=== PATIENT | female | born 1975 | race Caucasian/White ===

== ENCOUNTER → 2016-08-21 | Outpatient (CLI) | payer BC ==
--- NOTE | 2016-08-21 15:03 | XR ---
EXAMINATION TYPE: XR chest 2V DATE OF EXAM: 08/21/2016 2:59 PM COMPARISON: None HISTORY: 41 year-old female shortness of breath TECHNIQUE: Frontal and lateral views FINDINGS: The cardiomediastinal silhouette, aorta, and pulmonary vasculature are within normal limits. Lungs an d pleural spaces are clear. IMPRESSION: No acute cardiopulmonary process.
== END | disposition home or self-care (01) ==
LOC: RADXRMAIN 14:46
PROVIDERS: ATTEND Family Medicine
DX: R06.02 Shortness of breath (principal)
CPT/HCPCS: 71020

== ENCOUNTER → 2016-10-10 | Outpatient (CLI) | payer BC ==
--- NOTE | 2016-10-10 13:08 | MM ---
Reason for exam: follow-up at short interval from prior study. Last mammogram was performed 6 months ago. History: Family history of breast cancer in maternal aunt. Benign US breast aspiration ea add LT of the left breast, September 09, 2015. Benign US breast aspiration single LT of the left breast, September 09, 2015. Took hormonal contraceptives for 9 years beginning at age 16. Physical Findings: Nurse did not find any significant physical abnormalities on exam. MG 3D Diag Mammo W/Cad LILIA Bilateral CC and MLO view(s) were taken. Prior study comparison: April 02, 2016, bilateral MG 3d diag mammo w/cad LILIA. September 05, 2015, left breast MG 3d diag mammo w/cad LT. The breast tissue is heterogeneously dense. This may lower the sensitivity of mammography. No suspicious calcifications are seen. There is chronic nodularity bilaterally. These results were verbally communicated with the patient and result sheet given to the patient on 10/10/16. ASSESSMENT: Incomplete: need additional imaging evaluation, BI-RAD 0 RECOMMENDATION: Ultrasound of the left breast. Manage patient on a clinical basis.
--- NOTE | 2016-10-10 13:18 | USB ---
Reason for exam: additional evaluation requested from abnormal screening. History: Family history of breast cancer in maternal aunt. Benign US breast aspiration ea add LT of the left breast, September 09, 2015. Benign US breast aspiration single LT of the left breast, September 09, 2015. Took hormonal contraceptives for 9 years beginning at age 16. US Breast LT Left breast ultrasound includes all four quadrants, the retroareolar region and axilla. Finding demonstrates a 1.1 x 1.2 x 0.4cm oval, cystic lesion with septation at 12 o'clock, a 0.9 x 0.7 x 0.4cm cystic lesion at 1 o'clock, a 1.1 x 0.4 x 0.6cm cystic lesion at 1 o'clock, a 0.7 x 0.6 x 0.3cm oval, hypoechoic lesion at 2 o'clock for which an aspiration/biopsy is recommended, a 1.1 x 0.5 x 0.5cm hypoechoic lesion at 2 o'clock for which an aspiration/biopsy is recommended, a 7.0 x 0.6 x 0.5cm oval, cystic lesion at 2 o'clock, a 1.2 x 1.2 x 0.3cm cystic cluster at 4 o'clock, a 0.7 x 0.5 x 0.3cm oval, cystic lesion at 8 o'clock and a 0.8 x 0.5 x 0.4cm oval, cystic lesion at 10 o'clock. These results were verbally communicated with the patient and result sheet given to the patient on 10/10/16. ASSESSMENT: Suspicious, BI-RAD 4 RECOMMENDATION: Aspiration and ultrasound core biopsy of the left breast. Called with mammographic findings and has scheduled an appointment for the patient for 11/01/16 at 10:[address] Tabor. Aspiration/biopsy scheduled for 10/19/16 at 11:30. PRELIMINARY REPORT CALLED AND FAXED TO DR. TABOR ON AT 300/TP.
== END | disposition home or self-care (01) ==
LOC: RADMAMWWP 09:33
PROVIDERS: ATTEND Surgery
DX: R92.8 Other abnormal and inconclusive findings on diagnostic imaging of breast (principal)
CPT/HCPCS: 76641; G0204; G0279

== ENCOUNTER → 2016-10-19 | Day surgery (SDC) | payer BC ==
[~2016-10-19] MED LIST: BACITRACIN OINT 1 EACH PACKET TOPICAL ONE; LIDOCAINE 1% INJ 10MG/ML (20 ML MDV) ONE; SODIUM BICARB 4% 5 ML VIAL (0.48 MEQ/ML) ONE
--- NOTE | 2016-10-19 13:28 | USB ---
EXAMINATION TYPE: US biopsy breast VAD LT, MG diagnostic mammo LT wo CAD DATE OF EXAM: 10/19/2016 12:54 PM CLINICAL HISTORY: 41-year-old female referred for ultrasound-guided biopsy, R92.8 Abnormal Mammo. TECHNIQUE: Ultrasound guided core biopsy of the left breast. COMPARISON: 10/10/2016 FINDINGS: Targeted scanning again showed the hypoechoic area at the 2:00 position zone A. This demonstrates posterior through transmission and a somewhat collapsed appearance. A collapsing cyst is suggested. Aspiration is not performed. 6 month follow-up recommended. The second lesion located at the 2:00 position zone B/C adjacent to a simple cyst is also again demonstrated and is targeted for biopsy. The procedure of ultrasound guided core biopsy was explained to the patient. Benefits, alternatives, and risks were discussed. An informed consent was then obtained. The patient was placed in supine positioning for imaging and for the procedure. The overlying skin was prepped and draped in usual sterile fashion. Lidocaine buffered with bicarbonate was used as anesthetic into the skin and subcutaneous tissue up to area of concern in the 2:00 left breast. Under ultrasound guidance, a 13-gauge vacuum-assisted mammotome Elite biopsy gun device was used to obtain 5 core samples. Following this, a wing clip was left in lesion. Most of the lesion was removed from the multiple specimens obtained. A small portion remains behind. The patient tolerated the procedure well without any immediate complication. The patient was kept in the radiology department for short stay after the procedure and then discharged home in stable condition. Postprocedure mammogram shows clip posteriorly at the 2:00 position. IMPRESSION: Successful, uncomplicated ultrasound guided core biopsy of area of concern in the 2:00 zone B/C left breast, full pathology results to follow. RECOMMENDATION: 1. Follow-up pathology results. 2. Six-month follow-up left breast ultrasound to reassess the suspected collapsing cyst at the 2:00 position zone A. Pathology Results: Benign BREAST, LEFT, ULTRASOUND GUIDED CORE BIOPSY: FRAGMENTS OF FIBROADENOMA. FIBROCYSTIC CHANGE (FIBROSIS, CYST FORMATION, APOCRINE METAPLASIA, ADENOSIS AND DUCT HYPERPLASIA). Recommendation Follow up ultrasound of the left breast in 6 months. BALBIR
== END ==
LOC: RADUSWWP 11:11
PROVIDERS: ATTEND Surgery
DX: D24.2 Benign neoplasm of left breast (principal); N60.12 Diffuse cystic mastopathy of left breast; N60.82 Other benign mammary dysplasias of left breast; N60.22 Fibroadenosis of left breast; N60.92 Unspecified benign mammary dysplasia of left breast; N60.02 Solitary cyst of left breast; R92.8 Other abnormal and inconclusive findings on diagnostic imaging of breast
CPT/HCPCS: 88305; 19083; G0206; A4648; J2001

== ENCOUNTER → 2018-03-18 | Outpatient (CLI) | payer MEDICAID, BC ==
--- NOTE | 2018-03-20 13:16 | MM ---
Reason for exam: screening (asymptomatic). Last mammogram was performed 1 year and 5 months ago. History: Family history of breast cancer in maternal aunt. Benign US biopsy breast VAD LT of the left breast, October 19, 2016. Benign US breast aspiration ea add LT of the left breast, September 09, 2015. Benign US breast aspiration single LT of the left breast, September 09, 2015. Took hormonal contraceptives for 9 years beginning at age 16. Physical Findings: A clinical breast exam by your physician is recommended on an annual basis and results should be correlated with mammographic findings. MG 3D Screening Mammo W/Cad Bilateral CC and MLO view(s) were taken. Prior study comparison: October 19, 2016, left breast MG diagnostic mammo LT wo CAD. October 10, 2016, bilateral MG 3d diag mammo w/cad LILIA. The breast tissue is heterogeneously dense. This may lower the sensitivity of mammography. Previous mammotome biopsy in the left breast. No significant changes when compared with prior studies. ASSESSMENT: Negative, BI-RAD 1 RECOMMENDATION: Routine screening mammogram of both breasts in 1 year.
== END | disposition home or self-care (01) ==
LOC: RADMAMWWP 15:54
PROVIDERS: ATTEND Surgery
DX: Z12.31 Encounter for screening mammogram for malignant neoplasm of breast (principal)
CPT/HCPCS: 77063; 77067

== ENCOUNTER → 2019-04-10 | Outpatient (CLI) | payer BC ==
--- NOTE | 2019-04-14 08:13 | MM ---
Reason for exam: screening (asymptomatic). Last mammogram was performed 1 year and 1 month ago. History: Family history of breast cancer in maternal aunt. Benign US biopsy breast VAD LT of the left breast, October 19, 2016. Benign US breast aspiration ea add LT of the left breast, September 09, 2015. Benign US breast aspiration single LT of the left breast, September 09, 2015. Took hormonal contraceptives for 9 years beginning at age 16. Physical Findings: A clinical breast exam by your physician is recommended on an annual basis and results should be correlated with mammographic findings. MG 3D Screening Mammo W/Cad Bilateral CC and MLO view(s) were taken. Prior study comparison: March 18, 2018, bilateral MG 3d screening mammo w/cad. October 19, 2016, left breast MG diagnostic mammo LT wo CAD. The breast tissue is heterogeneously dense. This may lower the sensitivity of mammography. Previous mammotome biopsy in the left breat. There is chronic nodularity in the left breast superiorly at a middle depth on 3D images, stable from 09/05/15. No significant changes when compared with prior studies. ASSESSMENT: Benign, BI-RAD 2 RECOMMENDATION: Routine screening mammogram of both breasts in 1 year.
== END | disposition home or self-care (01) ==
LOC: RADMAMWWP 07:03
PROVIDERS: ATTEND Surgery
DX: Z12.31 Encounter for screening mammogram for malignant neoplasm of breast (principal)
CPT/HCPCS: 77063; 77067

== ENCOUNTER → 2019-04-29 | Outpatient (CLI) | payer BC ==
[2019-04-29 10:03] VITALS: BP 113/78; PULSE 91; RESP 16; TEMP 97.8; BMI 35.3
--- NOTE | 2019-04-29 10:41 | P.HPOB ---
History of Present Illness H&P Date: 04/29/19 Chief Complaint: The patient is here for routine gynecologic exam. This is a 43-year-old with an LMP of 04/22/2019 who is status post tubal ligation. Patient is here to establish with this office. Her menses are regular every month but have gotten slightly longer and now are lasting about 7 days. She is otherwise without complaints. Her last pelvic exam was about 2 years ago. Review of Systems The patient's weight has been stable over the last year. She denies respiratory, cardiac, or G.I. problems. Past Medical History Additional Past Medical History / Comment(s): Seasonal ALLERGIES. 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 No other history of STDs. History of Any Multi-Drug Resistant Organisms: None Reported Past Surgical History: Section, Orthopedic Surgery, Tubal Ligation Additional Past Surgical History / Comment(s): 2. Leg surgery. Past Psychological History: Anxiety Additional Psychological History / Comment(s): History of depression. Smoking Status: Never smoker Past Alcohol Use History: Occasional (0-6 per week) Past Drug Use History: None Reported Additional History: She has been since 2011. She works in [employer] at [employer]. - Past Family History Mother Family Medical History: No Reported History Additional Family Medical History / Comment(s): Great aunt had breast cancer. Father Family Medical History: No Reported History Medications and Allergies Home Medications Medication Instructions Recorded Confirmed Type ALPRAZolam [Xanax] 0.5 mg PO DAILY PRN 04/29/19 04/29/19 History Montelukast [Singulair] 10 mg PO DAILY 04/29/19 04/29/19 History Multivitamin [Multivitamins Adult 1 each PO DAILY 04/29/19 04/29/19 History Gummies] Allergies Allergy/AdvReac Type Severity Reaction Status Date / Time adhesive AdvReac Rash/Hives Unverified 04/29/19 09:57 hydromorphone HCl AdvReac Vomiting Verified 04/29/19 09:57 [From Dilaudid] latex AdvReac Itching Unverified 04/29/19 09:57 Exam Vital Signs Temp Pulse Resp BP Pulse Ox 04/29/19 10:01 97.8 F 91 16 113/78 97 Intake and Output 04/28/19 04/29/19 04/29/19 22:59 06:59 14:59 Other: Weight 87.543 kg Height 5 feet 2 inches, weight 193 pounds, BMI 35.3. This is a well-developed well-nourished white female who is alert and oriented times 3 in no acute distress. HEENT: Within normal limits. NECK: Supple without mass or thyromegaly. CHEST AND LUNGS: Clear to auscultation. HEART: Regular rate and rhythm. BREASTS: Are without mass or discharge. AXILLARY EXAM: Negative for adenopathy. BACK: Negative for CVA tenderness. ABDOMEN: Soft, nontender, without palpable masses. PELVIC EXAM: Normal external genitalia. Cervix and vagina appear normal with small amount of old menstrual blood. The cervix appears nulliparous and is slightly stenotic. There is no unusual discharge. There is no evidence of prol apse. The uterus is midposition, multiparous, nongravid size and nontender. There are no palpable adnexal masses or tenderness. RECTAL EXAM: negative for mass or tenderness and is negative for occult blood. EXTREMITIES: Nontender. IMPRESSION: 1. 43-year-old female who is status post tubal ligation with normal gynecologic exam. 2. Slightly longer menstrual periods than in the past. PLAN: 1. Pap smear was performed. 2. Self breast awareness was discussed with the patient. 3. Screening mammogram was done on 04/10/2019 and was benign. This will be repeated in 1 year. 4. Osteoporosis prevention was discussed. I have stressed the importance of adequate calcium, vitamin D and regular exercise. Recommended amounts of calcium and vitamin D were also discussed. 5. She was advised to return in one year for her annual well woman exam.
== END | disposition home or self-care (01) ==
LOC: WWCWWP 09:48
PROVIDERS: ATTEND Obstetrics & Gynecology
DX: Z53.9 Procedure and treatment not carried out, unspecified reason (principal)

== ENCOUNTER → 2020-05-10 | Outpatient (CLI) | payer BC | END | disposition home or self-care (01) | LOC: LABWHC1 08:42 | PROVIDERS: ATTEND Nurse Practitioner Family | DX: Z20.828 Contact with and (suspected) exposure to other viral communicable diseases (principal); Z03.818 Encounter for observation for suspected exposure to other biological agents ruled out | CPT/HCPCS: U0003; C9803 ==

== ENCOUNTER → 2020-09-13 | Outpatient (CLI) | payer BC ==
[2020-09-13 14:22] VITALS: BP 110/77; PULSE 78; RESP 18; TEMP 98.1
--- NOTE | 2020-09-13 15:03 | P.HPOB ---
History of Present Illness H&P Date: 09/13/20 Chief Complaint: The patient is here for her routine gynecologic exam and ma mmogram. This is a 45-year-old with an LMP of 09/03/2020. The patient is status post tubal ligation. The patient states her menstrual periods are regular every month but can last up to 10 days. Typically she has 2 days of regular flow and the rest of the time there is very light or minimal flow with some mucus. This can be more of a nuisance since she often does not know when her menstrual periods will end. She forgot to bring in her menstrual calendar from the past year. She denies any significant hot flashes, but does feel some fatigue around the time of her menstrual period. Review of Systems She has lost about 19 pounds over the past 1-1/2 years. The rest of the review of systems is unremarkable. Past Medical History Additional Past Medical History / Comment(s): Seasonal ALLERGIES. 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 No other history of STDs. History of Any Multi-Drug Resistant Organisms: None Reported Past Surgical History: Section, Orthopedic Surgery, Tubal Ligation Additional Past Surgical History / Comment(s): 2. Leg surgery. Past Psychological History: Anxiety Additional Psychological History / Comment(s): History of depression. Smoking Status: Never smoker Past Alcohol Use History: Occasional Past Drug Use History: None Reported Additional History: She has been since 2011 and works in [employer] at [employer]. - Past Family History Mother Family Medical History: No Reported History Additional Family Medical History / Comment(s): Great aunt had breast cancer. Father Family Medical History: No Reported History Medications and Allergies Home Medications Medication Instructions Recorded Confirmed Type ALPRAZolam [Xanax] 0.5 mg PO DAILY PRN 04/29/19 09/13/20 History Montelukast [Singulair] 10 mg PO DAILY 04/29/19 09/13/20 History Cholecalciferol [Vitamin D3 (25 25 mcg PO DAILY 09/13/20 09/13/20 History Mcg = 1000 Iu)] FLUoxetine HCL [PROzac] 20 mg PO HS 09/13/20 09/13/20 History L.acidoph,Paracasei, B.lactis 1 each PO DAILY 09/13/20 09/13/20 History [Probiotic] [place]-3 Fatty Acids [[place]-3] 1,000 mg PO DAILY 09/13/20 09/13/20 History Ubidecarenone [Co Q-10] 100 mg PO DAILY 09/13/20 09/13/20 History Allergies Allergy/AdvReac Type Severity Reaction Status Date / Time adhesive AdvReac Rash/Hives Unverified 04/29/19 09:57 hydromorphone HCl AdvReac Vomiting Verified 04/29/19 09:57 [From Dilaudid] latex AdvReac Itching Unverified 04/29/19 09:57 Exam Vital Signs Temp Pulse Resp BP Pulse Ox 09/13/20 14:16 98.1 F 78 18 110/77 99 Intake and Output 09/12/20 09/13/20 09/13/20 22:59 06:59 14:59 Other: Weight 78.925 kg Height 5 feet 2 inches, weight 174 pounds, BMI 31.8. This is a well-developed well-nourished white female who is alert and oriented t imes 3 in no acute distress. HEENT: Within normal limits. NECK: Supple without mass or thyromegaly. CHEST AND LUNGS: Clear to auscultation. HEART: Regular rate and rhythm. BREASTS: Are without mass or discharge. AXILLARY EXAM: Negative for adenopathy. BACK: Negative for CVA tenderness. ABDOMEN: Soft, nontender, without palpable masses. PELVIC EXAM: Normal external genitalia. There is a benign-appearing mole just posterior to the left labia majora on the inner buttock measuring 4 x 5 mm. Cervix and vagina appear normal. There is no unusual discharge. There is no evidence of prolapse. The uterus is midposition, nongravid size and nontender. There are no palpable adnexal masses or tenderness. RECTAL EXAM: negative for mass or tenderness and is negative for occult blood. EXTREMITIES: Nontender. IMPRESSION: 1. 45-year-old female with mild hypermenorrhea consisting of light prolonged flow which can last up to 10 days per month. 2. The patient is status post tubal ligation with normal gynecologic exam. PLAN: 1. Pap smear was deferred since she had a normal one on 04/29/2019. 2. Self breast awareness was discussed with the patient. 3. Screening mammogram will be done today. 4. Osteoporosis prevention was discussed. I have stressed the importance of adequate calcium, vitamin D and regular exercise. Recommended amounts of calcium and vitamin D were also discussed. 5. We have discussed options for her prolonged light menstrual periods including cyclic progesterone, oral contraception use, and endometrial ablation. At this time we will continue to follow it conservatively and she will keep a menstrual calendar. She was instructed to call if she is having menstrual problems or if she desires to proceed with one of the above options. 6. She was advised to return in one year for her annual well woman exam.
--- NOTE | 2020-09-15 10:34 | MM ---
Reason for exam: screening (asymptomatic). Last mammogram was performed 1 year and 5 months ago. History: Family history of breast cancer in maternal aunt. Benign US biopsy breast VAD LT of the left breast, October 19, 2016. Benign US breast aspiration ea add LT of the left breast, September 09, 2015. Benign US breast aspiration single LT of the left breast, September 09, 2015. Took hormonal contraceptives for 9 years beginning at age 16. Physical Findings: A clinical breast exam by your physician is recommended on an annual basis and results should be correlated with mammographic findings. MG 3D Screening Mammo W/Cad Bilateral CC and MLO view(s) were taken. Prior study comparison: April 10, 2019, bilateral MG 3d screening mammo w/cad. March 18, 2018, bilateral MG 3d screening mammo w/cad. The breast tissue is heterogeneously dense. This may lower the sensitivity of mammography. Previous mammotome biopsy in the left breast. There is chronic nodularity in the right anterior upper outer quadrant and left breast laterally at biopsy clip on the CC view. No significant changes when compared with prior studies. ASSESSMENT: Benign, BI-RAD 2 RECOMMENDATION: Routine screening mammogram of both breasts in 1 year.
== END | disposition home or self-care (01) ==
LOC: WWCWWP 13:47
PROVIDERS: ATTEND Obstetrics & Gynecology
DX: Z12.31 Encounter for screening mammogram for malignant neoplasm of breast (principal)
CPT/HCPCS: 77063; 77067

== ENCOUNTER 2021-01-09 13:44 | Emergency (ER) | payer BC ==
[2021-01-09 14:15] VITALS: RESP 18
[2021-01-09 14:44] LABS: Basophils % (A) 1 %; Eosinophils # (A) 0.1 k/uL (0-0.7); Eosinophils % (A) 1 %; HCT 37.1 % (34.0-46.0); HGB 12.8 gm/dL (11.4-16.0); Lymphocytes # (A) 1.5 k/uL (1.0-4.8); Lymphocytes % (A) 21 %; MCH 28.4 pg (25.0-35.0); MCHC 34.4 g/dL (31.0-37.0); MCV 82.7 fL (80.0-100.0); Mean Platelet Volume 7.7; Monocytes # (A) 0.4 k/uL (0-1.0); Monocytes % (A) 6 %; Neutrophils # (A) 4.7 k/uL (1.3-7.7); Neutrophils % (A) 69 %; Platelet Count 277 k/uL (150-450); RBC 4.49 m/uL (3.80-5.40); RDW 13.2 % (11.5-15.5); WBC 6.8 k/uL (3.8-10.6)
[2021-01-09 14:55] LABS: Albumin 4.3 g/dL (3.5-5.0); Calcium 9.4 mg/dL (8.4-10.2); Potassium 4.3 mmol/L (3.5-5.1); Total Bilirubin 0.3 mg/dL (0.2-1.3)
--- NOTE | 2021-01-09 14:57 | XR ---
EXAMINATION TYPE: XR chest 2V DATE OF EXAM: 01/09/2021 COMPARISON: 08/21/2016 HISTORY: 45-year-old female chest pain TECHNIQUE: PA and lateral views FINDINGS: The cardiomediastinal silhouette, aorta, and pulmonary vasculature are within normal limits. Lungs an d pleural spaces are clear. IMPRESSION: No acute cardiopulmonary process.
--- NOTE | 2021-01-09 16:36 | ED ---
Chest Pain HPI - General Chief Complaint: Chest Pain Stated Complaint: Chest Pain Time Seen by Provider: 01/09/21 16:14 Source: patient Mode of arrival: ambulatory Limitations: no limitations - History of Present Illness Initial Comments: 45-year-old female presents to emergency Department with a chief complaint of chest pain. States the pain feels like a pressure, 4/10 and is currently nonradiating. States this started yesterday but denies any alleviating factors. Denies any associated shortness of breath. States the pain did radiate to the back earlier today but not currently. She denies any lightheadedness, dizziness, visual changes, gait instability, one-sided weakness or paresthesias. Denies any nausea vomiting diarrhea. She has history of dyslipidemia but not currently treated. Denies history of early cardiac related . Not a smoker. Patient states she has history of anxiety and this feels somewhat like it. States she's been under a lot of stress recently. She denies any homicidal, suicidal thoughts or ideation at this time. - Related Data Home Medications Medication Instructions Recorded Confirmed ALPRAZolam [Xanax] 0.5 mg PO DAILY PRN 04/29/19 01/09/21 Montelukast [Singulair] 10 mg PO HS 04/29/19 01/09/21 FLUoxetine HCL [PROzac] 20 mg PO HS 09/13/20 01/09/21 Ubidecarenone [Co Q-10] 100 mg PO HS 09/13/20 01/09/21 Aloe Vera Oral Suspension 60 ml PO DAILY 01/09/21 01/09/21 Collagen Oral Suspension 15 ml PO BID 01/09/21 01/09/21 Trebiotic 1 scoop PO HS 01/09/21 01/09/21 Allergies Allergy/AdvReac Type Severity Reaction Status Date / Time adhesive AdvReac Rash/Hives Verified 01/09/21 17:39 hydromorphone HCl AdvReac Vomiting Verified 01/09/21 17:39 [From Dilaudid] latex AdvReac Rash/Hives Verified 01/09/21 17:39 Review of Systems ROS Statement: Those systems with pertinent positive or pertinent negative responses have been documented in the HPI. ROS Other: All systems not noted in ROS Statement are negative. EKG Findings - EKG Comments: EKG Findings:: Sinus rhythm and no acute ischemic changes. Ventricular rate 72, NC 116, QRS 70, QTc 429. Past Medical History Additional Past Medical History / Comment(s): Seasonal ALLERGIES. 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 No other history of STDs. History of Any Multi-Drug Resistant Organisms: None Reported Past Surgical History: Section, Orthopedic Surgery, Tubal Ligation Additional Past Surgical History / Comment(s): 2. Leg surgery. Past Psychological History: Anxiety Smoking Status: Never smoker Past Alcohol Use History: Occasional Past Drug Use History: None Reported - Past Family History Mother Family Medical History: No Reported History Additional Family Medical History / Comment(s): Great aunt had breast cancer. Father Family Medical History: No Reported History General Exam Limitations: no limitations General appearance: alert, in no apparent distress, obese Head exam: Present: atraumatic, normocephalic, normal inspection Eye exam: Present: normal appearance, PERRL, EOMI Pupils: Present: normal accommodation ENT exam: Present: normal exam, normal oropharynx, mucous membranes moist Neck exam: Present: normal inspection, full ROM. Absent: tenderness, lymphadenopathy Respiratory exam: Present: normal lung sounds bilaterally. Absent: respiratory distress, wheezes, rales, rhonchi, stridor, chest wall tenderness, accessory muscle use Cardiovascular Exam: Present: regular rate, normal rhythm, normal heart sounds. Absent: systolic murmur, diastolic murmur GI/Abdominal exam: Present: soft. Absent: distended, tenderness, rebound, bruit, pulsatile mass, hernia Extremities exam: Present: normal inspection, full ROM, normal capillary refill, other (Palpable DP and PT bilaterally). Absent: tenderness, pedal edema, joint swelling, calf tenderness Back exam: Present: normal inspection, full ROM. Absent: tenderness, CVA tenderness (R), CVA tenderness (L) Neurological exam: Present: alert, oriented X3 Psychiatric exam: Present: normal affect, normal mood Skin exam: Present: warm, dry, intact, normal color Course Vital Signs 01/09/21 01/09/21 01/09/21 14:12 16:02 17:30 Temperature 98 F Pulse Rate 80 75 78 Respiratory 18 18 18 Rate Blood Pressure 125/76 113/79 113/73 O2 Sat by Pulse 99 100 98 Oximetry 01/09/21 18:37 Temperature 98.5 F Pulse Rate 79 Respiratory 18 Rate Blood Pressure 108/68 O2 Sat by Pulse 97 Oximetry Chest Pain MDM - MDM 45-year-old female presents to emergency Department with a chief complaint of chest pain. Physical examination is unremarkable. Patient did appear to be slightly anxious. CBC CMP unremarkable. Coags within normal limits. Initial troponin is negative. Repeat troponins are also negative. EKG showed no acute ischemic changes chest x-ray is also unremarkable. Patient has a heart score of 1. I did offer cardiac observation to the patient, she declined. She will follow-up with the policy writer sales an outpatient basis. Strict return parameters were thoroughly discussed with patient was understanding and agreeable. Case discussed with Dr. Craven. Disposition Clinical Impression: Chest pain Disposition: HOME SELF-CARE Condition: Stable Instructions (If sedation given, give patient instructions): Chest Pain (ED) Additional Instructions: Please return to the Emergency Department if symptoms worsen or any other concerns. Follow up with a policy writer sales. Is patient prescribed a controlled substance at d/c from ED?: No Referrals: Danay Jacobs III, MD [Primary Care Provider] - 1-2 days jP Echeverria MD [STAFF PHYSICIAN] - 1-2 days Time of Disposition: 18:35
[2021-01-09 18:37] VITALS: BP 108/68; PULSE 79; TEMP 98.5
== END 2021-01-09 18:37 | disposition home or self-care (01) ==
LOC: EC 13:44
DX: R07.9 Chest pain, unspecified (principal); F41.9 Anxiety disorder, unspecified; E78.5 Hyperlipidemia, unspecified
CPT/HCPCS: 36415; 71046; 80053; 84484; 85025; 93005; 99285

== ENCOUNTER → 2021-06-15 | Outpatient (CLI) | payer OTHER | END | disposition home or self-care (01) | LOC: LABWHC1 08:17 | PROVIDERS: ATTEND Emergency Medicine | DX: Z20.822 Contact with and (suspected) exposure to COVID-19 (principal) | CPT/HCPCS: 87635 ==

== ENCOUNTER → 2021-07-20 | Outpatient (CLI) | payer OTHER | END | disposition home or self-care (01) | LOC: LABWHC1 17:05 | PROVIDERS: ATTEND Emergency Medicine | DX: Z20.822 Contact with and (suspected) exposure to COVID-19 (principal) | CPT/HCPCS: 87635 ==

== ENCOUNTER 2021-11-10 01:01 | Emergency (ER) | payer OTHER ==
[2021-11-10 01:15] VITALS: TEMP 98.1
[2021-11-10] MEDS ORDERED: KETOROLAC 15 MG/ML 1 ML VIAL IVP STA (03:23)
[2021-11-10] MEDS ORDERED: MORPHINE SULFATE 4 MG/ML SYRINGE IV STA (03:23)
[2021-11-10] MEDS ORDERED: ORPHENADRINE 30 MG/ML 2 ML VIAL IVP STA (03:24)
--- NOTE | 2021-11-10 03:26 | ED ---
Extremity Problem HPI - General Chief complaint: Extremity Problem,Nontraumatic Stated complaint: LT leg pain, difficulty walking Time Seen by Provider: 11/10/21 03:17 Source: patient, RN notes reviewed Mode of arrival: ambulatory Limitations: no limitations - History of Present Illness Initial comments: This is a pleasant 46-year-old female comes here complaining about left knee pain which radiates proximally into the thigh area. Patient states that pain startedYesterday when she was walking here. Patient complaining of sharp pain to the left knee which is exacerbated by any movement. Radiation into the anterior aspect of left thigh. No distal radiation. No distal paresthesias. Patient denies any fall or known injury other than the walking. Patient previously has had a leg fracture in the area of pain. no headache, no fever or chills, no changes in vision or hearing, no sore throat or difficulty with speech, no neck pain, no chest pain or shortness of breath, no abdominal pain, no nausea or vomiting, no changes in urination or bowel movements, no numbness or tingling, no extremity pain, no skin rashes or l esions. - Related Data Home Medications Medication Instructions Recorded Confirmed ALPRAZolam [Xanax] 0.5 mg PO DAILY PRN 04/29/19 01/09/21 Montelukast [Singulair] 10 mg PO HS 04/29/19 01/09/21 FLUoxetine HCL [PROzac] 20 mg PO HS 09/13/20 01/09/21 Ubidecarenone [Co Q-10] 100 mg PO HS 09/13/20 01/09/21 Aloe Vera Oral Suspension 60 ml PO DAILY 01/09/21 01/09/21 Collagen Oral Suspension 15 ml PO BID 01/09/21 01/09/21 Trebiotic 1 scoop PO HS 01/09/21 01/09/21 Previous Rx's Medication Instructions Recorded Cyclobenzaprine [Flexeril] 10 mg PO TID PRN #20 tab 11/10/21 HYDROcodone/APAP 5-325MG [[place] 1 tab PO Q6HR PRN 3 Days #12 tab 11/10/21 5-325] Ibuprofen [Motrin] 600 mg PO Q8HR PRN #30 tab 11/10/21 Allergies Allergy/AdvReac Type Severity Reaction Status Date / Time adhesive AdvReac Rash/Hives Verified 11/10/21 01:14 hydromorphone HCl AdvReac Vomiting Verified 11/10/21 01:14 [From Dilaudid] latex AdvReac Rash/Hives Verified 11/10/21 01:14 Review of Systems ROS Statement: Those systems with pertinent positive or pertinent negative responses have been documented in the HPI. ROS Other: All systems not noted in ROS Statement are negative. Past Medical History Additional Past Medical History / Comment(s): Seasonal ALLERGIES. Past [employer] history: She wants tested positive for HPV and later was negative. No other history of STDs. History of Any Multi-Drug Resistant Organisms: None Reported Past Surgical History: Section, Orthopedic Surgery, Tubal Ligation Additional Past Surgical History / Comment(s): 2. Leg surgery. Past Psychological History: Anxiety Smoking Status: Never smoker Past Alcohol Use History: Occasional Past Drug Use History: None Reported - Past Family History Mother Family Medical History: No Reported History Additional Family Medical History / Comment(s): Great aunt had breast cancer. Father Family Medical History: No Reported History General Exam - General Exam Comments Initial Comments: Patient does not appear to be ill or toxic. Limitations: no limitations General appearance: alert, in distress Head exam: Present: atraumatic, normocephalic, normal inspection Eye exam: Present: normal appearance, PERRL, EOMI. Absent: scleral icterus, conjunctival injection, periorbital swelling ENT exam: Present: normal exam, mucous membranes moist, normal external ear exam Neck exam: Present: normal inspection, full ROM. Absent: tenderness, meningismus, lymphadenopathy Respiratory exam: Present: normal lung sounds bilaterally. Absent: respiratory distress, wheezes, rales, rhonchi, stridor Cardiovascular Exam: Present: regular rate, normal rhythm, normal heart sounds. Absent: systolic murmur, diastolic murmur, rubs, gallop, clicks GI/Abdominal exam: Present: soft, normal bowel sounds. Absent: distended, tenderness, guarding, rebound, rigid Extremities exam: Present: normal inspection, tenderness, normal capillary refill. Absent: full ROM, pedal edema, joint swelling, calf tenderness Left Hip exam: Present: normal inspection, full ROM. Absent: tenderness, swelling Upper Leg exam: Present: normal inspection Knee exam: Present: normal inspection, tenderness, crepitus, full knee exten doroteo. Absent: full ROM, swelling, abrasion, laceration, ecchymosis, deformity, dislocation, erythema, effusion, pain/laxity with valgus, pain/laxity with varus Lower Leg exam: Present: normal inspection. Absent: tenderness, swelling, abrasion, laceration, ecchymosis, deformity, crepitus, dislocation, erythema, palpable cord, Homans' sign Ankle exam: Present: normal inspection, full ROM. Absent: tenderness, swelling Foot/Toe exam: Present: normal inspection, full ROM. Absent: tenderness Neurovascular tendon exam: Present: no vascular compromise. Absent: pulse deficit, abnormal cap refill, sensory deficit, extremity cold to touch, pallor Back exam: Present: normal inspection Neurological exam: Present: alert, oriented X3, CN II-XII intact Psychiatric exam: Present: normal affect, normal mood Skin exam: Present: warm, dry, intact, normal color. Absent: rash Course Vital Signs 11/10/21 11/10/21 01:13 04:03 Temperature 98.1 F Pulse Rate 87 72 Respiratory 18 16 Rate Blood Pressure 137/67 124/82 O2 Sat by Pulse 100 98 Oximetry Medical Decision Making - Medical Decision Making Patient's presentation appears to be consistent with pain isolated to the left knee which radiates proximally. Does not appear to be consistent with vascular insult either venous or arterial. Does not appear to be consistent with infectious etiology. Inflammatory arthritis possible less likely. There is no effusion. Pain appears to be mechanical, possibly osteoarthritis in nature. There is some crepitus on range of motion. This does raise suspicion of patellofemoral syndrome.Quadriceps tendinitis or tendon insult is also within the differential. - Lab Data Result diagrams: 11/10/21 03:51 11/10/21 03:51 Lab Results 11/10/21 11/10/21 Range/Units 03:51 03:51 WBC 6.6 (3.8-10.6) k/uL RBC 4.65 (3.80-5.40) m/uL Hgb 12.8 (11.4-16.0) gm/dL Hct 40.2 (34.0-46.0) % MCV 86.5 (80.0-100.0) fL MCH 27.5 (25.0-35.0) pg MCHC 31.8 (31.0-37.0) g/dL RDW 13.0 (11.5-15.5) % Plt Count 257 (150-450) k/uL MPV 7.9 Neutrophils % 67 % Lymphocytes % 24 % Monocytes % 5 % Eosinophils % 1 % Basophils % 1 % Neutrophils # 4.4 (1.3-7.7) k/uL Lymphocytes # 1.6 (1.0-4.8) k/uL Monocytes # 0.4 (0-1.0) k/uL Eosinophils # 0.1 (0-0.7) k/uL Basophils # 0.1 (0-0.2) k/uL Sodium 138 (137-145) mmol/L Potassium 4.1 (3.5-5.1) mmol/L Chloride 109 H (98-107) mmol/L Carbon Dioxide 25 (22-30) mmol/L Anion Gap 4 mmol/L BUN 17 (7-17) mg/dL Creatinine 0.71 (0.52-1.04) mg/dL Est GFR (CKD-EPI)AfAm >90 (>60 ml/min/1.73 sqM) Est GFR (CKD-EPI)NonAf >90 (>60 ml/min/1.73 sqM) Glucose 109 H (74-99) mg/dL Uric Acid 4.1 (3.7-7.4) mg/dL Calcium 8.7 (8.4-10.2) mg/dL Creatine Kinase 60 (30-135) U/L C-Reactive Protein <0.5 (<1.0) mg/dL Disposition Clinical Impression: Left anterior knee pain Disposition: HOME SELF-CARE Condition: Good Instructions (If sedation given, give patient instructions): Knee Pain (ED) Additional Instructions: Follow-up with your regular physician as directed. Return to the ER immediately if any symptoms worsen, new symptoms arise, or any other problems develop.Usual walker as tolerated. Call the orthopedic physician at 8 AM for follow-up appointment today or Saturday. Is patient prescribed a controlled substance at d/c from ED?: Yes When asked, does pt state using other controlled substances?: No If prescribed controlled substance>3 days was MAPS reviewed?: Prescribed <3 Days Referrals: Danay Jacobs III, MD [Primary Care Provider] - 1-2 days Shilo Short MD [STAFF PHYSICIAN] - 1-2 days Time of Disposition: 04:24
[2021-11-10 04:04] VITALS: BP 124/82; PULSE 72; RESP 16
[2021-11-10 04:04] LABS: Basophils # (A) 0.1 k/uL (0-0.2); Basophils % (A) 1 %; Eosinophils # (A) 0.1 k/uL (0-0.7); Eosinophils % (A) 1 %; HCT 40.2 % (34.0-46.0); HGB 12.8 gm/dL (11.4-16.0); Lymphocytes # (A) 1.6 k/uL (1.0-4.8); Lymphocytes % (A) 24 %; MCH 27.5 pg (25.0-35.0); MCHC 31.8 g/dL (31.0-37.0); MCV 86.5 fL (80.0-100.0); Mean Platelet Volume 7.9; Monocytes # (A) 0.4 k/uL (0-1.0); Monocytes % (A) 5 %; Neutrophils # (A) 4.4 k/uL (1.3-7.7); Neutrophils % (A) 67 %; Platelet Count 257 k/uL (150-450); RBC 4.65 m/uL (3.80-5.40); WBC 6.6 k/uL (3.8-10.6)
--- NOTE | 2021-11-10 04:09 | XR ---
EXAMINATION TYPE: XR knee complete LT DATE OF EXAM: 11/10/2021 COMPARISON: NONE HISTORY: Knee pain TECHNIQUE: 3 views FINDINGS: I see no fracture nor dislocation. Joint spaces are normal. There is no sign of joint effus ion. IMPRESSION: Negative left knee exam.
[2021-11-10 04:16] LABS: African American GFR (CKD) >90 (>60 ml/min/1.73 sqM); Anion Gap 4 mmol/L; Blood Urea Nitrogen 17 mg/dL (7-17); C Reactive Protein <0.5 mg/dL (<1.0); Calcium 8.7 mg/dL (8.4-10.2); Carbon Dioxide 25 mmol/L (22-30); Chloride 109 mmol/L (98-107); Creatine Kinase 60 U/L (30-135); Glucose 109 mg/dL (74-99); Non-African American GFR(CKD) >90 (>60 ml/min/1.73 sqM); Potassium 4.1 mmol/L (3.5-5.1); Sodium 138 mmol/L (137-145); Uric Acid 4.1 mg/dL (3.7-7.4)
[2021-11-10 05:53] LABS: Erythrocyte Sedimentation Rate 16 mm/hr (0-20)
== END 2021-11-10 04:48 | disposition home or self-care (01) ==
LOC: EC 01:01
DX: M25.562 Pain in left knee (principal); F41.9 Anxiety disorder, unspecified; Z88.5 Allergy status to narcotic agent; Z91.040 Latex allergy status; Z98.51 Tubal ligation status
CPT/HCPCS: 99283; 96374; 96375 ×2; 36415; 80048; 85652; 82550; 84550; 85025; 86140; 73562; J2270; J2360; J1885

== ENCOUNTER → 2021-11-21 | Outpatient (CLI) | payer OTHER ==
--- NOTE | 2021-11-22 01:58 | MR ---
EXAMINATION TYPE: MR lumbar spine wo con DATE OF EXAM: 11/21/2021 COMPARISON: None HISTORY: Left leg pain, numbness, and limited movement for 13 days. Multiplanar multiecho imaging of the lumbar spine without contrast. Lumbar vertebra have normal alignment. Disc spaces are fairly normal. There is slight decreased signa l in the L4-5 disc. No compression fracture. There is no lumbar paraspinal mass. The neural foramina are widely patent. No spinal stenosis. There is a minute posterior disc bulge at L4-5. There is devel opmentally adequate spinal canal. The visualized sacroiliac joints are intact. No evidence of focal b one destruction. IMPRESSION: Negative MRI scan of the lumbar spine.
--- NOTE | 2021-11-22 04:41 | MR ---
EXAMINATION TYPE: MR femur/thigh LT wo con DATE OF EXAM: 11/21/2021 COMPARISON: None HISTORY: Left leg pain, numbness, and limited movement for 13 days. Multiplanar multiecho imaging of the left thigh performed without contrast. The knee joint and hip joint appear intact. No evidence of hip dysplasia. Knee joint spaces are fairl y normal. I see no focal bone destruction. No sign of avascular necrosis. Muscles of the thigh are fa irly symmetric. No atrophy. No free fluid in the pelvis. No pathologic fluid collection seen in the left thigh. No evidence of edema. IMPRESSION: Negative MR scan of the left thigh.
== END | disposition home or self-care (01) ==
LOC: RADMRIMAIN 16:35
PROVIDERS: ATTEND Orthopaedic Surgery Orthopaedic Surgery of the Spine
DX: R20.0 Anesthesia of skin (principal); M79.605 Pain in left leg
CPT/HCPCS: 72148

== ENCOUNTER → 2021-11-21 | Outpatient (CLI) | payer OTHER | END | disposition home or self-care (01) | LOC: RADMRIMAIN 16:35 | PROVIDERS: ATTEND Orthopaedic Surgery | DX: Z53.9 Procedure and treatment not carried out, unspecified reason (principal) ==

== ENCOUNTER → 2021-12-05 | Outpatient (CLI) | payer OTHER ==
[2021-12-05 22:50] LABS: Basophils # (A) 0.03 X 10*3/uL (0.00-0.10); Basophils % (A) 0.4 %; Eosinophils # (A) 0.19 X 10*3/uL (0.04-0.35); Eosinophils % (A) 2.5 %; HCT 41.9 % (37.2-46.3); HGB 13.4 g/dL (12.0-15.0); Immature Grans, Automated 0.4 %; Lymphocytes # (A) 1.59 X 10*3/uL (0.90-5.00); Lymphocytes % (A) 20.9 %; MCV 87.7 fL (80.0-97.0); Mean Platelet Volume 10.4 fL (9.5-12.2); Monocytes # (A) 0.57 X 10*3/uL (0.20-1.00); Monocytes % (A) 7.5 %; NRBC Per 100 WBC 0 /100 WBCS (0.0-0.0); Neutrophils # (A) 5.19 X 10*3/uL (1.80-7.70); Neutrophils % (A) 68.3 %; Platelet Count 284 X 10*3/uL (140-440); RBC 4.78 X 10*6/uL (4.10-5.20); RDW 13.5 % (11.5-14.5)
[2021-12-06 00:15] LABS: Erythrocyte Sedimentation Rate 6 mm/Hr (0-20)
== END | disposition home or self-care (01) ==
LOC: LABWHC1 13:38
PROVIDERS: ATTEND Orthopaedic Surgery
DX: S76.112A Strain of left quadriceps muscle, fascia and tendon, initial encounter (principal); M25.562 Pain in left knee; M79.652 Pain in left thigh; M54.16 Radiculopathy, lumbar region; X58.XXXA Exposure to other specified factors, initial encounter
CPT/HCPCS: 36415; 85025; 85652; 86140

== ENCOUNTER → 2022-01-12 | Outpatient (CLI) | payer OTHER ==
[2022-01-12 15:00] LABS: C Reactive Protein <0.30 mg/dL (0.00-0.80); Rheumatoid Factor, Qnt <10 IU/mL (0-15)
== END | disposition home or self-care (01) ==
LOC: LABWHC1 07:38
DX: R29.898 Other symptoms and signs involving the musculoskeletal system (principal)
CPT/HCPCS: 36415; 85652; 86038; 86039; 86140; 86431

== ENCOUNTER → 2022-01-18 | Outpatient (CLI) | payer OTHER ==
[2022-01-18 22:48] LABS: Basophils # (A) 0.04 X 10*3/uL (0.00-0.10); Basophils % (A) 0.6 %; Eosinophils # (A) 0.08 X 10*3/uL (0.04-0.35); Eosinophils % (A) 1.3 %; HCT 42.3 % (37.2-46.3); HGB 13.3 g/dL (12.0-15.0); Immature Grans, Automated 0.3 %; Lymphocytes # (A) 1.89 X 10*3/uL (0.90-5.00); Lymphocytes % (A) 29.8 %; MCH 27.6 pg (27.0-32.0); MCHC 31.4 g/dL (32.0-37.0); MCV 87.8 fL (80.0-97.0); Mean Platelet Volume 10.7 fL (9.5-12.2); Monocytes # (A) 0.47 X 10*3/uL (0.20-1.00); Monocytes % (A) 7.4 %; NRBC Per 100 WBC 0 /100 WBCS (0.0-0.0); Neutrophils # (A) 3.84 X 10*3/uL (1.80-7.70); Neutrophils % (A) 60.6 %; Platelet Count 261 X 10*3/uL (140-440); RBC 4.82 X 10*6/uL (4.10-5.20); RDW 13.2 % (11.5-14.5); WBC 6.34 X 10*3/uL (4.50-10.00)
[2022-01-18 23:51] LABS: African American GFR (CKD) 110.9 (60.0-200.0); Albumin 4.6 g/dL (3.8-4.9); Albumin/Globulin Ratio 1.91 (1.60-3.17); Anion Gap 11.8 mmol/L (10.00-18.00); BUN/Creat Ratio 12.17 Ratio (12.00-20.00); Blood Urea Nitrogen 9.1 mg/dL (9.0-27.0); Calcium 9.2 mg/dL (8.7-10.3); Carbon Dioxide 23.3 mmol/L (20.0-27.5); Globulin 2.4 g/dL (1.6-3.3); Non-African American GFR(CKD) 95.7 (60.0-200.0); Total Bilirubin 0.4 mg/dL (0.30-1.20)
== END | disposition home or self-care (01) ==
LOC: LABWHC1 13:46
PROVIDERS: ATTEND Pain Medicine Interventional Pain Medicine
DX: R29.898 Other symptoms and signs involving the musculoskeletal system (principal)
CPT/HCPCS: 36415; 80053; 83036; 85025

== ENCOUNTER → 2022-02-05 | Outpatient (CLI) | payer OTHER ==
--- NOTE | 2022-02-05 13:34 | MR ---
MR pelvis without contrast HISTORY: G 57.22 Multiplanar multisequence imaging through the pelvis No comparisons Bone marrow signal is maintained. There is minimal free fluid within the pelvis. There is no fracture or dislocation. Hips are intact and symmetric. Sacroiliac joints show symmetric appearance. Within the lower uterine segment there is some mixed signal intensity, some increase in T1 and T2-shu ghted sequences with some heterogeneous low signal, there may be some hemorrhage, correlate. Left ova andreas cyst is present measuring 2.4 cm. No no evident pelvic adenopathy. Follicles are associated with the right ovary. Urinary bladder shows no abnormal luminal signal, thickening of the urinary bladder may be due to lack of distention, correlate to exclude cystitis. IMPRESSION: Left ovarian cyst. Minimal free fluid in the pelvis. Abnormal signal along the lower uter ine segment, correlate, consider pelvic ultrasound
== END | disposition home or self-care (01) ==
LOC: RADMRIMAIN 06:54
PROVIDERS: ATTEND Pain Medicine Interventional Pain Medicine
DX: N83.202 Unspecified ovarian cyst, left side (principal); G57.22 Lesion of femoral nerve, left lower limb
CPT/HCPCS: 72195

== ENCOUNTER → 2022-04-10 | Outpatient (CLI) | payer OTHER ==
--- NOTE | 2022-04-12 10:08 | MM ---
Reason for Exam: Screening (asymptomatic). Last mammogram was performed 1 year(s) and 6 month(s) ago. Patient History: Menarche at age 11. First Full-Term at age 26. Patient has history of breast feeding. Hormonal Contraceptives, starting at age 16 for 9 years. 10/19/2016, Benign Core Biopsy on the left side. 09/09/2015, Benign Cyst Aspiration on the left side. 09/09/2015, Benign Cyst Aspiration on the left side. Maternal aunt had breast cancer. Last menstrual period: 03/17/2022 Risk Values: Radha 5 year model risk: 1.4%. NCI Lifetime model risk: 12.3%. Prior Study Comparison: 04/02/2016 Bilateral Diagnostic Mammogram, [facility]. 10/10/2016 Bilateral Diagnostic Mammogram, [facility]. 10/19/2016 Left Diagnostic Mammogram, [facility]. 03/18/2018 Bilateral Screening Mammogram, [facility]. 04/10/2019 Bilateral Screening Mammogram, [facility]. 09/13/2020 Bilateral Screening Mammogram, [facility]. Tissue Density: The breast tissue is heterogeneously dense. This may lower the sensitivity of mammography. Findings: Analyzed By CAD. Pattern appears symmetrical and stable. A core marker is in the left breast. There appears to be some increasing architectural distortion within the outer left breast on the craniocaudal projection. This is not well-visualized on the unilateral weakness. Additional evaluation with compression views is recommended. Overall Assessment: Incomplete: need additional imaging evaluation, BI-RAD 0 Management: Diagnostic Mammogram of the left breast. A negative mammogram report should not preclude additional follow up of suspicious palpable abnormalities. Patient should continue monthly self breast exam. A clinical breast exam by your physician is recommended on an annual basis and results should be correlated with mammographic findings. Electronically signed and approved by: Andre Pugh D.O. Radiologis
== END | disposition home or self-care (01) ==
LOC: RADMAMWWP 13:31
PROVIDERS: ATTEND Obstetrics & Gynecology
DX: Z12.31 Encounter for screening mammogram for malignant neoplasm of breast (principal); Z80.3 Family history of malignant neoplasm of breast
CPT/HCPCS: 77063; 77067

== ENCOUNTER → 2022-04-17 | Outpatient (CLI) | payer OTHER ==
--- NOTE | 2022-04-17 10:50 | MM ---
Reason for Exam: Additional evaluation requested from abnormal screening. Last screening mammogram was performed less than 1 month ago. Patient History: Menarche at age 11. First Full-Term at age 26. Perimenopausal. Patient has history of breast feeding. Hormonal Contraceptives, starting at age 16 for 9 years. 10/19/2016, Benign Core Biopsy on the left side. 09/09/2015, Benign Cyst Aspiration on the left side. 09/09/2015, Benign Cyst Aspiration on the left side. Maternal aunt had breast cancer. Last menstrual period: 04/10/2022 Risk Values: Radha 5 year model risk: 1.4%. NCI Lifetime model risk: 12.3%. Prior Study Comparison: 04/10/2019 Bilateral Screening Mammogram, [facility]. 09/13/2020 Bilateral Screening Mammogram, [facility]. 04/10/2022 Bilateral MG 3D screening mammo w/cad, [facility]. Tissue Density: Left: The breast tissue is heterogeneously dense. This may lower the sensitivity of mammography. Findings: Analyzed By CAD. Possible distortion does not completely go away on spot views, not clearly seen on 3-D true lateral view. Fairly similar appearance on review of 2019 3-D cc image left breast. Background dense tissue. Overall Assessment: Incomplete: need additional imaging evaluation, BI-RAD 0 Management: Diagnostic Breast Ultrasound of the left breast. Summation density versus true lesion. Background dense tissue. Electronically signed and approved by: Isaiah Senior M.D.
--- NOTE | 2022-04-17 11:27 | USB ---
Reason for Exam: Additional evaluation requested from abnormal screening. Patient History: Menarche at age 11. First Full-Term at age 26. Perimenopausal. Patient has history of breast feeding. Hormonal Contraceptives, starting at age 16 for 9 years. 10/19/2016, Benign Core Biopsy on the left side. 09/09/2015, Benign Cyst Aspiration on the left side. 09/09/2015, Benign Cyst Aspiration on the left side. Maternal aunt had breast cancer. Risk Values: Radha 5 year model risk: 1.4%. NCI Lifetime model risk: 12.3%. Technique: Method: Targeted. Prior Study Comparison: 04/10/2019 Bilateral Screening Mammogram, [facility]. 09/13/2020 Bilateral Screening Mammogram, [facility]. 04/10/2022 Bilateral MG 3D screening mammo w/cad, [facility]. Findings: The lateral section of the breast of the left breast, the axilla of the left breast and the retroareolar of the left breast were scanned. Targeted ultrasound 10 cm distance from nipple 2:00 position shows overall circumscribed parallel oriented hypoechoic anechoic lesion measuring 1.6 x 0.8 x 1.8 cm with microlobulated margins but no internal vascularity near biopsy clip is not clearly identified on prior study. Additional scattered simple-appearing round thin-walled cysts are redemonstrated. Overall Assessment: Suspicious, BI-RAD 4 Management: Ultrasound Core Biopsy of the left breast. Targeted biopsy new area of concern left breast. Patient told the findings and recommendations at time of dictation. Electronically signed and approved by: Isaiah Senior M.D.
== END | disposition home or self-care (01) ==
LOC: RADMAMWWP 10:21
PROVIDERS: ATTEND Obstetrics & Gynecology
DX: R92.8 Other abnormal and inconclusive findings on diagnostic imaging of breast (principal); Z80.3 Family history of malignant neoplasm of breast
CPT/HCPCS: 77061; 77065

== ENCOUNTER → 2022-04-23 | Day surgery (SDC) | payer OTHER ==
--- NOTE | 2022-04-23 14:09 | MM ---
Reason for Exam: Post Procedure Mammogram. Last screening mammogram was performed less than 1 month ago. Patient History: Menarche at age 11. First Full-Term at age 26. Perimenopausal. Patient has history of breast feeding. Hormonal Contraceptives, starting at age 16 for 9 years. 10/19/2016, Benign Core Biopsy on the left side. 09/09/2015, Benign Cyst Aspiration on the left side. 09/09/2015, Benign Cyst Aspiration on the left side. Last menstrual period: 04/10/2022 Risk Values: Radha 5 year model risk: 1.4%. NCI Lifetime model risk: 12.3%. Prior Study Comparison: 09/13/2020 Bilateral Screening Mammogram, [facility]. 04/10/2022 Bilateral MG 3D screening mammo w/cad, [facility]. 04/17/2022 Left US breast workup limited LT, [facility]. 04/17/2022 Left MG 3D work up w/cad LT, [facility]. Tissue Density: Left: The breast tissue is heterogeneously dense. This may lower the sensitivity of mammography. Overall Assessment: Post procedure mammogram for marker placement Management: Clinical Management Electronically signed and approved by: Milton Jaimes D.O.
--- NOTE | 2022-04-26 10:41 | USB ---
Risk Values: Radha 5 year model risk: 1.4%. NCI Lifetime model risk: 12.3%. Prior Study Comparison: 09/13/2020 Bilateral Screening Mammogram, [facility]. 04/10/2022 Bilateral MG 3D screening mammo w/cad, [facility]. 04/17/2022 Left US breast workup limited LT, [facility]. 04/17/2022 Left MG 3D work up w/cad , [facility]. Pathology Description: Location: 2 o'clock. Marker Left Behind. Needle Type: Mammotome Cores: 6 Skin Nicks: 1 Gauge: 13 The procedure of ultrasound guided core biopsy was explained to the patient. Benefits, alternatives, and risks were discussed. An informed consent was then obtained. The patient was placed in supine positioning for imaging and for the procedure. The overlying skin was prepped and draped in usual sterile fashion. Lidocaine was used as anesthetic into the skin and subcutaneous tissue up to area of concern in the left breast. A alexis was made with surgical scalpel. Under ultrasound guidance, a 12-gauge vacuum assisted biopsy gun device was used to obtain 6 core samples. Following this, a biopsy clip ([place] coil) was left in lesion. The patient tolerated the procedure well without any immediate complication. The patient was kept in the radiology department for short stay after the procedure and then discharged home in stable condition. Postprocedure mammogram: The patient was transferred to mammography for physician ordered post procedure mammogram for clip placement verification. The biopsy clip appears to be in appropriate position. Impression: Successful, uncomplicated ultrasound guided core biopsy of area of concern in the left breast, full pathology results to follow. The procedure of ultrasound guided core biopsy was explained to the patient. Benefits, alternatives, and risks were discussed. An informed consent was then obtained. The patient was placed in supine positioning for imaging and for the procedure. The overlying skin was prepped and draped in usual sterile fashion. Lidocaine was used as anesthetic into the skin and subcutaneous tissue up to area of concern in the left breast. A alexis was made with surgical scalpel. Under ultrasound guidance, a 12-gauge vacuum assisted biopsy gun device was used to obtain 6 core samples. Following this, a biopsy clip ([place] coil) was left in lesion. The patient tolerated the procedure well without any immediate complication. The patient was kept in the radiology department for short stay after the procedure and then discharged home in stable condition. Postprocedure mammogram: The patient was transferred to mammography for physician ordered post procedure mammogram for clip placement verification. Impression: Successful, uncomplicated ultrasound guided core biopsy of area of concern in the left breast, full pathology results to follow. Pathology Results: Result: Benign, Fibroadenoma. LEFT BREAST, 2:00 POSITION, ULTRASOUND GUIDED CORE BIOPSY: Benign fibroadenoma with myxoid change and fibrocystic change with columnar cell change, focal adenosis and focal usual ductal hyperplasia. Overall Assessment: Benign Management: Diagnostic Mammogram of the left breast in 6 months. Diagnostic Breast Ultrasound of the left breast in 6 months. Electronically signed and approved by: Milton Jaimes D.O.
== END ==
LOC: RADUSWWP 12:40
PROVIDERS: ATTEND Surgery
DX: D24.2 Benign neoplasm of left breast (principal); N60.12 Diffuse cystic mastopathy of left breast; N62 Hypertrophy of breast
CPT/HCPCS: 88305; 77065; 19083; A4648

== ENCOUNTER → 2023-05-06 | Outpatient (CLI) | payer OTHER ==
--- NOTE | 2023-05-06 12:03 | XR ---
EXAMINATION TYPE: XR chest 2V DATE OF EXAM: 05/06/2023 11:56 AM COMPARISON: Chest radiographs from 01/09/2021 TECHNIQUE: XR chest 2V Frontal and lateral views of the chest. CLINICAL INDICATION:Female, 48 years old with history of J40; FINDINGS: Lungs/Pleura: No pleural effusion pneumothorax. Right basilar patchy airspace opacity on the frontal view. Pulmonary vascularity: Unremarkable. Heart/mediastinum: Cardiomediastinal silhouette is unremarkable. Musculoskeletal: No acute osseous pathology. IMPRESSION: Right basilar patchy airspace opacity concerning for pneumonia.
== END | disposition home or self-care (01) ==
LOC: RADXRMAIN 11:35
PROVIDERS: ATTEND Internal Medicine
DX: J40 Bronchitis, not specified as acute or chronic (principal); R91.8 Other nonspecific abnormal finding of lung field
CPT/HCPCS: 71046

== ENCOUNTER 2023-05-07 16:37 | Emergency (ER) | payer OTHER ==
--- NOTE | 2023-05-07 17:45 | ED ---
General Adult HPI - General Source: patient, RN notes reviewed Mode of arrival: ambulatory Limitations: no limitations <Meghana Hidalgo - Last Filed: 05/07/23 17:44> - History of Present Illness Onset/Timin -: days(s) Location: chest Radiation: non-radiation Quality: aching Consistency: constant Improves with: none Worsens with: other Associated Symptoms: cough, other (() Treatments Prior to Arrival: other (Azithromycin) <Shreyas Sanchez - Last Filed: 05/07/23 19:52> - General Chief complaint: Upper Respiratory Infection Stated complaint: pneumonia-coughing up blood Time Seen by Provider: 05/07/23 17:45 - History of Present Illness Initial comments: Patient is a 48-year-old female who presents the emergency department for coughing up blood. Patient was diagnosed with pneumonia today at her primary care's office. She does admit to shortness of breath and aching chest pain. She denies leg pain and swelling. Denies history of DVT and PE. Denies blood thinner use. (Meghana Hidalgo) 's patient is 48-year-old woman who presents to have evaluation after she experienced some hemoptysis this afternoon. The patient states that she has had approximately 3 weeks of some cough, intermittently getting better and worse. The cough is been more consistent going back a week to 10 days and she saw her physician in the clinic yesterday. She had started azithromycin and has taken 2 days worth of that now. He had a chest x-ray yesterday and then was called today and was told she had pneumonia and additional prescription for Augmentin was phoned in but she has not had a chance to start that yet. This afternoon she had coughing with small amount of red blood. She also is having some right sided chest and back pain. The patient has not noted leg pain or swelling. No history of DVT/PE. (Shreyas Sanchez) - Related Data Home Medications Medication Instructions Recorded Confirmed ALPRAZolam [Xanax] 0.5 mg PO DAILY PRN 04/29/19 04/17/22 Montelukast [Singulair] 10 mg PO HS 04/29/19 04/17/22 FLUoxetine HCL [PROzac] 20 mg PO HS 09/13/20 04/17/22 Ubidecarenone [Co Q-10] 100 mg PO HS 09/13/20 04/17/22 Aloe Vera Oral Suspension 60 ml PO DAILY 01/09/21 04/17/22 Collagen Oral Suspension 15 ml PO BID 01/09/21 04/17/22 Trebiotic 1 scoop PO HS 01/09/21 04/17/22 Previous Rx's Medication Instructions Recorded Amoxic-Pot Clav 875-125Mg 1 tab PO Q12HR 1 Days #14 tab 05/07/23 [Augmentin 875-125] Allergies Allergy/AdvReac Type Severity Reaction Status Date / Time adhesive AdvReac Rash/Hives Verified 05/07/23 17:02 hydromorphone HCl AdvReac Vomiting Verified 05/07/23 17:02 [From Dilaudid] latex AdvReac Rash/Hives Verified 05/07/23 17:02 Review of Systems ROS Other: All systems not noted in ROS Statement are negative. <Meghana Hidalgo - Last Filed: 05/07/23 17:44> ROS Other: All systems not noted in ROS Statement are negative. Constitutional: Denies: fever, chills, weakness Respiratory: Reports: cough, hemoptysis. Denies: dyspnea, wheezes, stridor Cardiovascular: Reports: chest pain. Denies: palpitations, orthopnea, edema, syncope Gastrointestinal: Denies: abdominal pain, nausea, vomiting, diarrhea Genitourinary: Denies: dysuria, hematuria Musculoskeletal: Denies: back pain Skin: Denies: rash Neurological: Denies: headache, weakness, numbness <Shreyas Sanchez - Last Filed: 05/07/23 19:52> ROS Statement: Those systems with pertinent positive or pertinent negative responses have been documented in the HPI. Past Medical History Past Medical History: Hyperlipidemia Additional Past Medical History / Comment(s): Seasonal ALLERGIES. Past MANAGER MATERIAL history: She wants tested positive for HPV and later was negative. No other history of STDs. History of Any Multi-Drug Resistant Organisms: None Reported Past Surgical History: Section, Orthopedic Surgery, Tubal Ligation Additional Past Surgical History / Comment(s): 2. left Leg surgery, repair. Past Anesthesia/Blood Transfusion Reactions: No Reported Reaction Past Psychological History: Anxiety Smoking Status: Never smoker Past Alcohol Use History: Occasional Past Drug Use History: None Reported - Past Family History Mother Family Medical History: No Reported History Additional Family Medical History / Comment(s): Great aunt had breast cancer. Father Family Medical History: No Reported History <Meghana Hidalgo - Last Filed: 05/07/23 17:44> General Exam Limitations: no limitations <Meghana Hidalgo - Last Filed: 05/07/23 17:44> General appearance: alert, in no apparent distress Head exam: Present: atraumatic, normocephalic Eye exam: Present: normal appearance. Absent: scleral icterus, conjunctival injection ENT exam: Present: normal oropharynx Neck exam: Present: normal inspection Respiratory exam: Present: rales (Right base). Absent: respiratory distress, wheezes, rhonchi, stridor, chest wall tenderness, accessory muscle use Cardiovascular Exam: Present: regular rate, normal rhythm, normal heart sounds. Absent: systolic murmur, diastolic murmur, rubs, gallop GI/Abdominal exam: Present: soft. Absent: distended, tenderness, guarding, rebound, rigid, mass Extremities exam: Present: normal inspection, normal capillary refill. Absent: pedal edema, calf tenderness Back exam: Present: normal inspection. Absent: CVA tenderness (R), CVA tenderness (L) Neurological exam: Present: alert Skin exam: Present: warm, dry, intact, normal color. Absent: rash <Shreyas Sanchez - Last Filed: 05/07/23 19:52> - General Exam Comments Initial Comments: Visual Physical Exam Vital signs reviewed General: Well-appearing, nontoxic, no acute distress. Head: Normocephalic, atraumatic Eyes: PERRLA, EOMI ENT: Airway patent Chest: Nonlabored breathing Skin: No visual rash, normal skin tone Neuro: Alert and oriented 3 Musculoskeletal: No gross abnormalities (Meghana Hidalgo) Course Vital Signs 05/07/23 05/07/23 05/07/23 16:58 18:02 19:22 Temperature 98.2 F Pulse Rate 94 81 80 Respiratory 18 17 18 Rate Blood Pressure 123/83 136/102 126/77 O2 Sat by Pulse 96 99 98 Oximetry EKG Findings - EKG Results: EKG: interpreted by ERMD, WNL, sinus rhythm (Rate 68 bpm), normal axis, normal QRS, normal ST/T, no acute changes - NV, Pacemaker, Normal: Normal tracing: normal tracing <Shreyas Sanchez - Last Filed: 05/07/23 19:52> Medical Decision Making <Meghana Hidalgo - Last Filed: 05/07/23 17:44> - Lab Data Result diagrams: 05/07/23 17:59 05/07/23 17:59 <Shreyas Sanchez - Last Filed: 05/07/23 19:52> - Medical Decision Making I performed the QuickNote portion of this chart - Meghana Hidalgo PA-C (Meghana Hidalgo) - Lab Data Lab Results 05/07/23 05/07/23 05/07/23 Range/Units 17:59 17:59 17:59 WBC 7.2 (3.8-10.6) k/uL RBC 4.81 (3.80-5.40) m/uL Hgb 12.9 (11.4-16.0) gm/dL Hct 39.3 (34.0-46.0) % MCV 81.7 (80.0-100.0) fL MCH 26.9 (25.0-35.0) pg MCHC 32.9 (31.0-37.0) g/dL RDW 13.5 (11.5-15.5) % Plt Count 266 (150-450) k/uL MPV 8.2 Neutrophils % 62 % Lymphocytes % 27 % Monocytes % 6 % Eosinophils % 2 % Basophils % 0 % Neutrophils # 4.5 (1.3-7.7) k/uL Lymphocytes # 1.9 (1.0-4.8) k/uL Monocytes # 0.4 (0-1.0) k/uL Eosinophils # 0.1 (0-0.7) k/uL Basophils # 0.0 (0-0.2) k/uL PT 10.2 (10.0-12.5) sec INR 0.9 (<1.2) APTT 24.7 (22.0-30.0) sec D-Dimer 0.51 (<0.60) mg/L FEU Sodium 140 (137-145) mmol/L Potassium 4.4 (3.5-5.1) mmol/L Chloride 108 H (98-107) mmol/L Carbon Dioxide 19 L (22-30) mmol/L Anion Gap 13 mmol/L BUN 7 (7-17) mg/dL Creatinine 0.69 (0.52-1.04) mg/dL Est GFR (CKD-EPI)AfAm >90 (>60 ml/min/1.73 sqM) Est GFR (CKD-EPI)NonAf >90 (>60 ml/min/1.73 sqM) Glucose 90 (74-99) mg/dL Calcium 9.4 (8.4-10.2) mg/dL Magnesium 2.3 (1.6-2.3) mg/dL Total Bilirubin 0.6 (0.2-1.3) mg/dL AST 34 (14-36) U/L ALT 20 (4-34) U/L Alkaline Phosphatase 50 (38-126) U/L Troponin I (0.000-0.034) ng/mL Total Protein 7.8 (6.3-8.2) g/dL Albumin 4.5 (3.5-5.0) g/dL 05/07/23 Range/Units 17:59 WBC (3.8-10.6) k/uL RBC (3.80-5.40) m/uL Hgb (11.4-16.0) gm/dL Hct (34.0-46.0) % MCV (80.0-100.0) fL MCH (25.0-35.0) pg MCHC (31.0-37.0) g/dL RDW (11.5-15.5) % Plt Count (150-450) k/uL MPV Neutrophils % % Lymphocytes % % Monocytes % % Eosinophils % % Basophils % % Neutrophils # (1.3-7.7) k/uL Lymphocytes # (1.0-4.8) k/uL Monocytes # (0-1.0) k/uL Eosinophils # (0-0.7) k/uL Basophils # (0-0.2) k/uL PT (10.0-12.5) sec INR (<1.2) APTT (22.0-30.0) sec D-Dimer (<0.60) mg/L FEU Sodium (137-145) mmol/L Potassium (3.5-5.1) mmol/L Chloride (98-107) mmol/L Carbon Dioxide (22-30) mmol/L Anion Gap mmol/L BUN (7-17) mg/dL Creatinine (0.52-1.04) mg/dL Est GFR (CKD-EPI)AfAm (>60 ml/min/1.73 sqM) Est GFR (CKD-EPI)NonAf (>60 ml/min/1.73 sqM) Glucose (74-99) mg/dL Calcium (8.4-10.2) mg/dL Magnesium (1.6-2.3) mg/dL Total Bilirubin (0.2-1.3) mg/dL AST (14-36) U/L ALT (4-34) U/L Alkaline Phosphatase (38-126) U/L Troponin I <0.012 (0.000-0.034) ng/mL Total Protein (6.3-8.2) g/dL Albumin (3.5-5.0) g/dL Disposition <Meghana Hidalgo - Last Filed: 05/07/23 17:44> Is patient prescribed a controlled substance at d/c from ED?: No <Shreyas Sanchez - Last Filed: 05/07/23 19:52> Clinical Impression: Pneumonia Disposition: HOME SELF-CARE Condition: Good Instructions (If sedation given, give patient instructions): Pneumonia (ED) Prescriptions: Amoxic-Pot Clav 875-125Mg [Augmentin 875-125] 1 tab PO Q12HR 1 Days #14 tab Referrals: Sergio Sierra MD [Primary Care Provider] - 1-2 days
[2023-05-07 18:26] LABS: Basophils % (A) 0 %; Eosinophils # (A) 0.1 k/uL (0-0.7); Eosinophils % (A) 2 %; HCT 39.3 % (34.0-46.0); HGB 12.9 gm/dL (11.4-16.0); Lymphocytes # (A) 1.9 k/uL (1.0-4.8); Lymphocytes % (A) 27 %; MCH 26.9 pg (25.0-35.0); MCHC 32.9 g/dL (31.0-37.0); MCV 81.7 fL (80.0-100.0); Mean Platelet Volume 8.2; Monocytes # (A) 0.4 k/uL (0-1.0); Monocytes % (A) 6 %; Neutrophils # (A) 4.5 k/uL (1.3-7.7); Neutrophils % (A) 62 %; Platelet Count 266 k/uL (150-450); RBC 4.81 m/uL (3.80-5.40); RDW 13.5 % (11.5-15.5); WBC 7.2 k/uL (3.8-10.6)
[2023-05-07 18:39] LABS: INR 0.9 (<1.2); Partial Thromboplastin Time 24.7 sec (22.0-30.0); Prothrombin Time 10.2 sec (10.0-12.5)
[2023-05-07 19:01] LABS: ALT 20 U/L (4-34); African American GFR (CKD) >90 (>60 ml/min/1.73 sqM); Albumin 4.5 g/dL (3.5-5.0); Anion Gap 13 mmol/L; Blood Urea Nitrogen 7 mg/dL (7-17); Carbon Dioxide 19 mmol/L (22-30); Chloride 108 mmol/L (98-107); Glucose 90 mg/dL (74-99); Magnesium 2.3 mg/dL (1.6-2.3); Non-African American GFR(CKD) >90 (>60 ml/min/1.73 sqM); Sodium 140 mmol/L (137-145); Total Bilirubin 0.6 mg/dL (0.2-1.3); Total Protein 7.8 g/dL (6.3-8.2)
[2023-05-07 19:05] LABS: AST 34 U/L (14-36); Alkaline Phosphatase 50 U/L (38-126); Calcium 9.4 mg/dL (8.4-10.2); Potassium 4.4 mmol/L (3.5-5.1)
[2023-05-07 19:33] VITALS: RESP 18
[2023-05-07 20:42] VITALS: BP 117/71; PULSE 86; TEMP 98.8
== END 2023-05-07 20:37 | disposition home or self-care (01) ==
LOC: EC 16:37
DX: J18.9 Pneumonia, unspecified organism (principal); Z86.59 Personal history of other mental and behavioral disorders; Z88.8 Allergy status to other drugs, medicaments and biological substances; Z20.822 Contact with and (suspected) exposure to COVID-19
CPT/HCPCS: 36415; 93005; 85379; 80053; 83735; 84484; 85025; 85610; 85730; 87636; 99284; 96365; J0696

== ENCOUNTER → 2023-06-03 | Outpatient (CLI) | payer OTHER ==
--- NOTE | 2023-06-03 10:34 | CT ---
EXAMINATION TYPE: CT chest w con CT DLP: 395.2 mGycm, Automated exposure control for dose reduction was used. DATE OF EXAM: 06/03/2023 10:23 AM COMPARISON: Chest radiograph 05/06/2023 CLINICAL INDICATION:Female, 48 years old with history of J18.9 PNEUMONIA, UNSPECIFIED ORGANISM; PH[facility], Pneumonia, unspecified organism TECHNIQUE: Multiple axial images were obtained through the chest. Sagittal and coronal reformats were created for review. Contrast used:100 ml mL of Isovue 300 with IV Contrast (None if empty) Oral contrast used: (None if empty) FINDINGS: LUNGS/ PLEURA: No evidence for focal consolidation, pneumothorax or pleural effusion. AIRWAY: Patent and unremarkable. HEART: Size within normal limits. MEDIASTINUM: No gross evidence of adenopathy. VASCULATURE: No aortic aneurysm. MUSCULOSKELETAL: No acute osseous abnormalities SOFT TISSUES/LYMPH NODES: Unremarkable. LOWER NECK: No significant findings. UPPER ABDOMEN: No significant findings. IMPRESSION: No evidence for acute thoracic process. No evidence for pneumonia.
== END | disposition home or self-care (01) ==
LOC: RADCTMAIN 09:10
PROVIDERS: ATTEND Internal Medicine
DX: J18.9 Pneumonia, unspecified organism (principal)
CPT/HCPCS: 71260; Q9967

== ENCOUNTER → 2023-08-02 | Outpatient (CLI) | payer SELFPAY ==
[2023-08-02 16:08] LABS: Immunoglobulin A 83.3 mg/dL (60.0-350.0)
[2023-08-02 19:30] LABS: Immunoglobulin E 25.6 IU/mL (0.00-114.00)
== END | disposition home or self-care (01) ==
LOC: LABWHC1 09:03
PROVIDERS: ATTEND Internal Medicine Critical Care Medicine
DX: J18.1 Lobar pneumonia, unspecified organism (principal)
CPT/HCPCS: 36415; 82784; 82785

== ENCOUNTER → 2024-04-29 | Outpatient (CLI) | payer OTHER ==
--- NOTE | 2024-04-30 07:53 | MM ---
Reason for Exam: Screening (asymptomatic). Last mammogram was performed 2 year(s) and 1 month(s) ago. Patient History: Menarche at age 11. First Full-Term at age 26. Perimenopausal. Patient has history of breast feeding. Hormonal Contraceptives, starting at age 16 for 9 years. 04/23/2022, Benign US biopsy breast VAD LT on the left side. 10/19/2016, Benign Core Biopsy on the left side. 09/09/2015, Benign Cyst Aspiration on the left side. 09/09/2015, Benign Cyst Aspiration on the left side. Last menstrual period: 04/28/2024 Risk Values: Radha 5 year model risk: 1.8%. NCI Lifetime model risk: 14.9%. Prior Study Comparison: 04/10/2022 Bilateral MG 3D screening mammo w/cad, [facility]. 04/17/2022 Left MG 3D work up w/cad LT, [facility]. 04/23/2022 Left MG diagnostic mammo LT wo CAD., [facility]. Tissue Density: The breasts are heterogeneously dense, which may obscure small masses. Findings: Analyzed By CAD. Right breast: Focal asymmetry right upper outer quadrant 13.7 cm nipple measuring 9 mm. Not clearly seen on priors likely secondary to patient technique. Left breast: There is no suspicious group of microcalcifications or new suspicious mass. Overall Assessment: Incomplete: need additional imaging evaluation, BI-RAD 0 Management: Diagnostic Breast Ultrasound of the left breast. [facility] will attempt to contact patient to return for supplemental views and ultrasound if indicated. Patient should continue monthly self-breast exams. A clinical breast exam by your physician is recommended on an annual basis. This exam should not preclude additional follow-up of suspicious palpable abnormalities. Note on Radha scores and lifetime risk: 1. A Radha score greater than 3% is considered moderate risk. If this is the case, consider specialist referral to assess eligibility for a risk reducing agent. 2. If overall lifetime risk for the development of breast cancer is 20% or higher, the patient may qualify for future screening with alternating mammogram and breast MRI. [facility], , 04/30/2024 7:50 AM. Electronically signed and approved by: Silas Scott DO
== END | disposition home or self-care (01) ==
LOC: RADMAMWWP 07:18
PROVIDERS: ATTEND Obstetrics & Gynecology
CPT/HCPCS: 77063; 77067

== ENCOUNTER → 2024-05-06 | Outpatient (CLI) | payer OTHER ==
--- NOTE | 2024-05-06 12:41 | USB ---
Reason for Exam: Additional evaluation requested from abnormal screening. Patient History: Menarche at age 11. First Full-Term at age 26. Perimenopausal. Patient has history of breast feeding. Hormonal Contraceptives, starting at age 16 for 9 years. 04/23/2022, Benign US biopsy breast VAD LT on the left side. 10/19/2016, Benign Core Biopsy on the left side. 09/09/2015, Benign Cyst Aspiration on the left side. 09/09/2015, Benign Cyst Aspiration on the left side. Risk Values: Radha 5 year model risk: 1.6%. NCI Lifetime model risk: 14.5%. Technique: Method: Targeted. Prior Study Comparison: 04/17/2022 Left US breast workup limited LT, [facility]. 04/17/2022 Left MG 3D work up w/cad LT, [facility]. 04/23/2022 Left MG diagnostic mammo LT wo CAD., [facility]. 04/29/2024 Bilateral MG 3D screening mammo w/cad, [facility]. Findings: The upper outer quadrant of the right breast, the axilla of the right breast and the retroareolar of the right breast were scanned. There is a solid lesion noted at the right breast 11:00 position 8 cm from the nipple measuring 8 x 6 mm. Tissue diagnosis is recommended.. Overall Assessment: Suspicious, BI-RAD 4 Management: Ultrasound Core Biopsy of the right breast. A clinical breast exam by your physician is recommended on an annual basis and results should be correlated with mammographic findings. This exam should not preclude additional follow-up of suspicious palpable abnormalities. Results were given to the patient verbally at the time of exam. [facility], , 05/06/2024 11:34 AM. Electronically signed and approved by: Dale Mccoy M.D. Radiologis
== END | disposition home or self-care (01) ==
LOC: RADUSWWP 10:49
PROVIDERS: ATTEND Obstetrics & Gynecology
DX: R92.8 Other abnormal and inconclusive findings on diagnostic imaging of breast (principal)

== ENCOUNTER → 2024-05-20 | Day surgery (SDC) | payer OTHER ==
--- NOTE | 2024-05-28 10:36 | MM ---
Reason for Exam: Post Procedure Mammogram. Last screening mammogram was performed less than 1 month ago. Patient History: Menarche at age 11. First Full-Term at age 26. Perimenopausal. Patient has history of breast feeding. Hormonal Contraceptives, starting at age 16 for 9 years. 04/23/2022, Benign US biopsy breast VAD LT on the left side. 10/19/2016, Benign Core Biopsy on the left side. 09/09/2015, Benign Cyst Aspiration on the left side. 09/09/2015, Benign Cyst Aspiration on the left side. Risk Values: Radha 5 year model risk: 1.6%. NCI Lifetime model risk: 14.5%. Prior Study Comparison: 04/17/2022 Left MG 3D work up w/cad LT, [facility]. 04/23/2022 Left MG diagnostic mammo LT wo CAD., [facility]. 04/29/2024 Bilateral MG 3D screening mammo w/cad, [facility]. Tissue Density: Right: The breasts are heterogeneously dense, which may obscure small masses. Pathology Description: Location: 11 o'clock. Marker Left Behind. Needle Type: Mammotome Cores: 4 Skin Nicks: 1 The procedure of ultrasound guided core biopsy was explained to the patient. Benefits, alternatives, and risks were discussed. An informed consent was then obtained. A timeout was performed. The patient was placed in supine positioning for imaging and for the procedure. The overlying skin was prepped and draped in usual sterile fashion. Lidocaine was used as anesthetic into the skin and subcutaneous tissue up to area of concern in the right breast. A small skin alexis was made with surgical scalpel. Under ultrasound guidance, a 12-gauge vacuum assisted biopsy gun device was used to obtain 4 core samples, left o'clock position 8 cm from the nipple. A butterfly [place] toby biopsy clip was left in lesion. The patient tolerated the procedure well without any immediate complication. The patient was kept in the radiology department for short stay after the procedure and then discharged home in stable condition. Postprocedure mammogram: The patient was transferred to mammography for physician ordered post procedure mammogram for clip placement verification. Post procedure mammogram demonstrates the clip in appropriate placement. Impression: Successful ultrasound guided core biopsy of area of concern in the right breast, full pathology results to follow. Recommendations: 1. Recommendations are pending pathology results. [facility], , 05/20/2024 2:08 PM. Pathology Results: Result: Benign, Fibroadenoma. Pathology and radiology were reviewed. Findings are concordant. RIGHT BREAST, ELEVEN O'CLOCK, ULTRASOUND GUIDED NEEDLE CORE BIOPSY: Fibroadenoma and background fibrocystic changes. Overall Assessment: Benign Assessment: MG diagnostic mammo RT wo CAD - Right: Benign, BI-RAD 2. Management: Diagnostic Mammogram of the right breast in 6 months. Electronically signed and approved by: Andre Pugh D.O. Radiologis
== END ==
LOC: RADUSWWP 12:37
PROVIDERS: ATTEND Surgery
DX: D24.1 Benign neoplasm of right breast (principal); N60.11 Diffuse cystic mastopathy of right breast
CPT/HCPCS: 88305; 77065; 19083; A4648

== ENCOUNTER → 2024-11-18 | Outpatient (CLI) | payer OTHER ==
--- NOTE | 2024-11-18 13:09 | MM ---
Reason for Exam: Hx of benign breast biopsy. Last screening mammogram was performed 7 month(s) ago. Patient History: Menarche at age 11. First Full-Term at age 26. Perimenopausal. Patient has history of breast feeding. Hormonal Contraceptives, starting at age 16 for 9 years. 05/20/2024, Benign US biopsy breast VAD RT on the right side. 04/23/2022, Benign US biopsy breast VAD LT on the left side. 10/19/2016, Benign Core Biopsy on the left side. 09/09/2015, Benign Cyst Aspiration on the left side. 09/09/2015, Benign Cyst Aspiration on the left side. Last menstrual period: 11/18/2024 Risk Values: Radha 5 year model risk: 1.6%. NCI Lifetime model risk: 14.5%. Prior Study Comparison: 04/23/2022 Left MG diagnostic mammo LT wo CAD., [facility]. 04/29/2024 Bilateral MG 3D screening mammo w/cad, [facility]. 05/20/2024 Right MG diagnostic mammo RT wo CAD, [facility]. Tissue Density: Right: The breasts are heterogeneously dense, which may obscure small masses. Findings: Analyzed By CAD. Stable fibroglandular tissue with right middle depth biopsy clip in the upper aspect. No new suspicious masses, calcifications or distortions. Overall Assessment: Benign, BI-RAD 2 Management: Screening Mammogram of both breasts in 1 year. Results were given to the patient verbally at the time of exam. Patient should continue monthly self-breast exams. A clinical breast exam by your physician is recommended on an annual basis. This exam should not preclude additional follow-up of suspicious palpable abnormalities. Note on Radha scores and lifetime risk: 1. A Radha score greater than 3% is considered moderate risk. If this is the case, consider specialist referral to assess eligibility for a risk reducing agent. 2. If overall lifetime risk for the development of breast cancer is 20% or higher, the patient may qualify for future screening with alternating mammogram and breast MRI. [facility], , 11/18/2024 1:05 PM. Electronically signed and approved by: Silas Scott DO
[2024-11-18 15:16] LABS: Basophils # (A) 0.02 X 10*3/uL (0.00-0.10); Basophils % (A) 0.4 %; Eosinophils # (A) 0.04 X 10*3/uL (0.04-0.35); Eosinophils % (A) 0.9 %; HCT 39.4 % (37.2-46.3); HGB 12.5 g/dL (12.0-15.0); Lymphocytes # (A) 1.37 X 10*3/uL (0.90-5.00); Lymphocytes % (A) 30.2 %; MCH 26.8 pg (27.0-32.0); MCHC 31.7 g/dL (32.0-37.0); MCV 84.4 FL (80.0-97.0); Mean Platelet Volume 10.4 FL (9.5-12.2); Monocytes # (A) 0.29 X 10*3/uL (0.20-1.00); Monocytes % (A) 6.4 %; NRBC Per 100 WBC 0 X 10*3/uL (0.00-0.01); Neutrophils % (A) 61.7 %; Platelet Count 276 X 10*3/uL (140-440); RBC 4.67 X 10*6/uL (4.10-5.20); RDW 14.3 % (11.5-14.5); WBC 4.54 X 10*3/uL (4.50-10.00)
[2024-11-18 19:13] LABS: ALT 14 U/L (8-44); AST 19 U/L (13-35); Albumin 4.3 g/dL (3.8-4.9); Albumin/Globulin Ratio 1.59 Ratio (1.60-3.17); Alkaline Phosphatase 48 U/L (41-126); Blood Urea Nitrogen 11.2 mg/dL (9.0-27.0); Carbon Dioxide 24.5 mmol/L (21.6-31.8); Chloride 105 mmol/L (96-109); Chol/HDL Ratio 3.61 Ratio; Globulin 2.7 g/dL (1.6-3.3); Glucose 93 mg/dL (70-110); LDL Cholesterol,Calculated 141.6 mg/dL (0.0-131.0); Potassium 4.1 mmol/L (3.5-5.5); Sodium 142 mmol/L (135-145); Total Bilirubin 0.2 mg/dL (0.3-1.2); VLDL Calculation 13.76 mg/dL (5.00-40.00)
[2024-11-18 21:24] LABS: Anti-DNA, DS unit <1.0 IU/mL; DNA Double-Stranded Negative (Negative)
== END | disposition home or self-care (01) ==
LOC: RADMAMWWP 12:23
PROVIDERS: ATTEND Surgery
DX: Z00.00 Encounter for general adult medical examination without abnormal findings (principal); R92.8 Other abnormal and inconclusive findings on diagnostic imaging of breast; R92.331 Mammographic heterogeneous density, right breast; R76.9 Abnormal immunological finding in serum, unspecified; Z92.0 Personal history of contraception
CPT/HCPCS: 77061; 77065; 80053; 80061; 84443; 85025; 86039; 86160; 86225; 86235

== ENCOUNTER 2025-01-18 22:43 | Emergency (ER) | payer OTHER ==
--- NOTE | 2025-01-18 22:58 | ED ---
Lower Extremity Injury HPI - General Chief Complaint: Extremity Injury, Lower Stated Complaint: left foot pain Time Seen by Provider: 01/18/25 22:49 Source: patient, RN notes reviewed Mode of arrival: wheelchair Limitations: no limitations - History of Present Illness Initial Comments: 49-year-old female presents emergency department chief complaint of left toe injury. Patient states that she presented because of the been bankers small abrasions she states her tetanus up-to-date. No paresthesias. Patient states this is very painful is not taking medicine for the pain. Patient complaints. - Related Data Home Medications Medication Instructions Recorded Confirmed ALPRAZolam [Xanax] 0.5 mg PO DAILY PRN 04/29/19 05/07/24 Montelukast [Singulair] 10 mg PO HS 04/29/19 05/07/24 Allergies Allergy/AdvReac Type Severity Reaction Status Date / Time adhesive AdvReac Rash/Hives Verified 01/18/25 22:48 hydromorphone HCl AdvReac Vomiting Verified 01/18/25 22:48 [From Dilaudid] latex AdvReac Rash/Hives Verified 01/18/25 22:48 Review of Systems ROS Statement: Those systems with pertinent positive or pertinent negative responses have been documented in the HPI. ROS Other: All systems not noted in ROS Statement are negative. Past Medical History Past Medical History: Hyperlipidemia Additional Past Medical History / Comment(s): Seasonal ALLERGIES. 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 No other history of STDs. Nerve damge in left leg. Hx shingles 2021 History of Any Multi-Drug Resistant Organisms: None Reported Past Surgical History: Section, Orthopedic Surgery, Tubal Ligation Additional Past Surgical History / Comment(s): 2. left Leg surgery, repair. Past Anesthesia/Blood Transfusion Reactions: No Reported Reaction Past Psychological History: Anxiety Smoking Status: Never smoker Past Alcohol Use History: Occasional Past Drug Use History: None Reported - Past Family History Mother Family Medical History: No Reported History Additional Family Medical History / Comment(s): Great aunt had breast cancer. Father Family Medical History: No Reported History General Exam Limitations: no limitations General appearance: alert, in no apparent distress Head exam: Present: atraumatic, normocephalic, normal inspection Neck exam: Present: normal inspection, full ROM. Absent: tenderness, meningismus, lymphadenopathy Respiratory exam: Present: normal lung sounds bilaterally. Absent: respiratory distress, wheezes, rales, rhonchi, stridor Cardiovascular Exam: Present: regular rate, normal rhythm, normal heart sounds. Absent: systolic murmur, diastolic murmur, rubs, gallop, clicks Extremities exam: Present: other (Left foot first digit there is a small superficial laceration, abrasion on the dorsal aspect, there is tenderness diffusely of the first digit with swelling, ecchymosis noted. Neurovascular intact) Course Vital Signs 01/18/25 01/19/25 22:44 00:52 Temperature 97.7 F 97.6 F Pulse Rate 83 76 Respiratory 18 15 Rate Blood Pressure 127/81 120/79 O2 Sat by Pulse 98 99 Oximetry Medical Decision Making - Medical Decision Making Was pt. sent in by a medical professional or institution ([facility], C[employer]ER, urgent care, hospital, or senior living...) When possible be specific @ -No Did you speak to anyone other than the patient for history (EMS, parent, family, police, friend...)? What history was obtained from this source @ -No Did you review nursing and triage notes (agree or disagree)? Why? @ -I reviewed and agree with nursing and triage notes Were old charts reviewed (outside hosp., previous admission, EMS record, old EKG, old radiological studies, urgent care reports/EKG's, senior living records)? Report findings @ -No old charts were reviewed Differential Diagnosis (chest pain, altered mental status, abdominal pain women, abdominal pain men, vaginal bleeding, weakness, fever, dyspnea, syncope, headache, dizziness, GI bleed, back pain, seizure, CVA, palpatations, mental health, musculoskeletal)? @ -Toe contusion toe fracture toe sprain EKG interpreted by me (3pts min.). @ -None none X-rays interpreted by me (1pt min.). @ -X-ray of the left toes shows no acute fracture or acute osseous abnormality. CT interpreted by me (1pt min.). @ -None done U/S interpreted by me (1pt. min.). @ -None done What testing was considered but not performed or refused? (CT, X-rays, U/S, labs)? Why? @ -None What meds were considered but not given or refused? Why? @ -None Did you discuss the management of the patient with other professionals (professionals i.e. , PA, COOKER LOADER, lab, RT, psych nurse, perinatal social worker, roof designer, teacher, chief merchandising officer, immigration case worker)? Give summary @ -No Was smoking cessation discussed for >3mins.? @ -No Was critical care preformed (if so, how long)? @ -No Were there social determinants of health that impacted care today? How? (Homelessness, low income, unemployed, alcoholism, drug addiction, tr ansportation, low edu. Level, literacy, decrease access to med. care, correction, rehab)? @ -No Was there de-escalation of care discussed even if they declined (Discuss DNR or withdrawal of care, Hospice)? DNR status @ -No What co-morbidities impacted this encounter? (DM, HTN, Smoking, COPD, CAD, Cancer, CVA, ARF, Chemo, Hep., AIDS, mental health diagnosis, sleep apnea, morbid obesity)? @ -None Was patient admitted / discharged? Hospital course, mention meds given and route, prescriptions, significant lab abnormalities, going to OR and other pertinent info. @ -Discharge patient negative x-ray of her left toes patient has a toe contusion, sprain. Patient will follow-up with PCP, Ortho/podiatry as needed. Undiagnosed new problem with uncertain prognosis? @ -No Drug Therapy requiring intensive monitoring for toxicity (Heparin, Nitro, Insulin, Cardizem)? @ -No Were any procedures done? @ -No Diagnosis/symptom? @ -Left toe sprain, contusion. Acute, or Chronic, or Acute on Chronic? @ -acute Uncomplicated (without systemic symptoms) or Complicated (systemic symptoms)? @ -uncomplicated Side effects of treatment? @ -No Exacerbation, Progression, or Severe Exacerbation? @ -No Poses a threat to life or bodily function? How? (Chest pain, [place], [place], pneumonia, PE, COPD, DKA, ARF, appy, cholecystitis, CVA, Diverticulitis, Homicidal, Suicidal, threat to staff... and all critical care pts) @ -No Disposition Clinical Impression: Contusion, toe, Sprain of toe, great, left Disposition: HOME SELF-CARE Condition: Stable Instructions (If sedation given, give patient instructions): Foot Contusion (ED) Additional Instructions: Please return to the Emergency Department if symptoms worsen or any other concerns. Is patient prescribed a controlled substance at d/c from ED?: No Referrals: Sergio Sierra DO [Primary Care Provider] - 1-2 days Time of Disposition: 00:34
[2025-01-18] MEDS: KETOROLAC 15 MG/ML 1 ML VIAL IM STA (23:31)
[2025-01-18] MEDS: BACITRACIN OINT 1 EACH PACKET TOPICAL ONE (23:31)
--- NOTE | 2025-01-19 00:53 | XR ---
EXAM: XR Left Toes, 2 or More Views CLINICAL HISTORY: ITS.REASON XR Reason: 1st digit pain TECHNIQUE: Frontal, lateral and oblique views of the toes of the left foot. COMPARISON: No relevant prior studies available. FINDINGS: Bones/joints: Unremarkable. No acute fracture. No dislocation. Soft tissues: Unremarkable. No radiopaque foreign body. IMPRESSION: Normal left toe x-rays.
[2025-01-19 00:54] VITALS: BP 120/79; PULSE 76; RESP 15; TEMP 97.6
== END 2025-01-19 00:54 | disposition home or self-care (01) ==
LOC: EC 22:43
DX: S93.502A Unspecified sprain of left great toe, initial encounter (principal); Z88.5 Allergy status to narcotic agent; X58.XXXA Exposure to other specified factors, initial encounter; Z91.040 Latex allergy status
CPT/HCPCS: 99283 ×2; 96372 ×2; 73660; J1885